=== PATIENT | female | born 1955 | race Caucasian/White ===

== ENCOUNTER 2018-09-10 08:49 | Emergency (ER) | payer OTHER | END 2018-09-10 10:56 | disposition home or self-care (01) | LOC: FTE 08:49 | DX: M17.9 Osteoarthritis of knee, unspecified (principal); M25.521 Pain in right elbow; M79.641 Pain in right hand; M25.511 Pain in right shoulder; R40.2412 Glasgow coma scale score 13-15, at arrival to emergency department | CPT/HCPCS: 73030; 73030-RT; 73080-RT; 73130-RT; 73562; 99284-25 ==